=== PATIENT | female | born 1990 | race African-American/Black ===

== ENCOUNTER 2022-11-19 11:12 | Emergency (ER) | payer OTHER, SELFPAY | END 2022-11-19 13:04 | disposition home or self-care (01) | LOC: ERS 11:12 | DX: S46.911A Strain of unspecified muscle, fascia and tendon at shoulder and upper arm level, right arm, initial encounter (principal); X50.0XXA Overexertion from strenuous movement or load, initial encounter | CPT/HCPCS: 99283 ==